=== PATIENT | male | born 1970 | race Caucasian/White ===

== ENCOUNTER 2023-09-22 08:38 | Emergency (ER) | payer SELFPAY ==
[2023-09-22 08:43] VITALS: BP 165/9
--- NOTE | 2023-09-22 09:14 | ED.GENMED ---
History of Present Illness
General
Chief Complaint: Dizziness
Source: patient
Exam Limitations: none
Time Seen by Provider: 09/22/23 09:12
Nursing documentation reviewed up to this point in time: agreed with
Travel History
Have you had any contact with someone who has COVID-19?: No
Do you have any symptoms of coronavirus? Fever > 100 degrees, chills, cough, shortness of breath, sore throat, loss of taste or smell, muscle aches, or headache?: No
History of Present Illness
History of Present Illness:
53-year-old male with history of COPD, HTN, right facial reconstruction surgery 08/14/23 presents stating he's been 'dizzy' since yesterday. 5 p.m playing with his dogs in yard, bent over to pik up a stick and felt suddenly off balance and dizzy for
about a minute. [place] well again and hit golf balls, went for walk, and about two hours later he became dizzy again, couldn't walk straight, vomited once and has felt dizzy since. It is room spinning and worse with any movement and is associated with
nausea, especially moving his head back and forth. No recent illness. Denies fever. Denies CP, SOB, abdominal pain. Denies weakness, numbness.
Past History
Past History
ED Past Medical History: Hypercholesterolemia
ED Past Surgical History: Orthopedic (right shoulder) and Other (R facial reconstructive surgery 08/14/23)
Social History
Tobacco: Non-smoker
Alcohol: Occasional
Drug: None
Personal:
Living: with family
Review of Systems
Review of Systems
Allergies reviewed?: Yes
All Other Systems: ROS reviewed and negative except as documented in HPI and ROS
Constitutional: Denies fever, fatigue or chills
EENT: Reports other (denies ear pain); Denies sore throat
Respiratory: Denies trouble breathing
Cardiac: Denies chest pain
ABD/GI: Reports nausea and vomiting (vomited once yesterday); Denies abdominal pain or diarrhea
: Denies dysuria or difficulty voiding
Musculoskeletal: Reports no symptoms
Skin: Reports other (Scars right face from recent surgery.)
Neurological: Reports dizzy; Denies headache, weakness or numbness
Phy Exam
Physical Exam
Physical Exam:
GENERAL: No acute distress. A&Ox3.
CONSTITUTIONAL: Afebrile.
EYES: PERRL, conjunctivae normal
Neck: Supple
ENMT: moist mucus membranes, Pharynx nl
RESPIRATORY: Regular respirations, nonlabored, lungs clear.
CARDIOVASCULAR: Regular rate and rhythm, no murmurs, no rubs.
GI: Soft, nontender, normal BS
MUSCULOSKELETAL: Moves with ease. Well perfused.
SKIN: Warm, dry, pink
PSYCH: Normal mood and affect. Well kept, interactive and appropriate
NEUROLOGIC: Awake, alert and oriented. Speech clear. CN 2-12 intact. Strength equal throughout. Finger to nose intact. No focal neurological deficits
Course
Orders/Labs/Results
Orders:
Orders
09/22/23 09:31
Physical Therapy Consult [Pt Eval And Treat] Urgent
Activity Level: As Tolerated
09/22/23 11:59
Dexamethasone [Decadron] 10 mg PO NOW STA
Vital Signs
Initial and Last Documented VS:
Initial Vital Signs
Temp Pulse Resp BP Pulse Ox
98.1 F 72 20 165/9 100
09/22/23 08:43 09/22/23 08:43 09/22/23 08:43 09/22/23 08:43 09/22/23 08:43
Last Documented Vital Signs
Temp Pulse Resp BP Pulse Ox
97.1 F 60 16 121/81 98
09/22/23 12:17 09/22/23 12:17 09/22/23 12:17 09/22/23 12:17 09/22/23 12:17
Log Chipper Operator consulted with Physician
Log Chipper Operator consulted with physician?: Yes
Name of Physician Consulted: Rea
MDM/Problems Addressed
Differential Diagnosis Includes:
BPPV, Labyrinthitis, vestibular neuritis, CVA
MDM/Problems Addressed:
53-year-old male with history of COPD, HTN, right facial reconstruction surgery 08/14/23 presents stating he's been 'dizzy' since yesterday. 5 p.m playing with his dogs in yard, bent over to pik up a stick and felt suddenly off balance and dizzy for
about a minute. [place] well again and hit golf balls, went for walk, and about two hours later he became dizzy again, couldn't walk straight, vomited once and has felt dizzy since. It is room spinning and worse with any movement and is associated with
nausea, especially moving his head back and forth. No recent illness. Denies fever. Denies CP, SOB, abdominal pain. Denies weakness, numbness.
Afebrile, NAD
11:10 AM
Patient is awaiting physical therapy. I just called up there and she will be down shortly, patient and updated
Case discussed with Dr. Lucia who agrees no indication for laboratory work, he and his both state he had laboratory work prior to his surgery and nothing was abnormal.
Cerebellar exam is normal Not consistent with posterior circulation stroke as symptoms come and go they are not persistent, no focal neurological deficits, no ataxia, no n/v,do not suspect CVA
11:59 AM
Physical therapist in: States negative BPPV, exam is consistent with neuritis as he has significant nystagmus at rest and with deviation to the right gaze only as well as a positive head impulse test.
Will treat with steroids, f/u with ENT as needed
Return here if worse
Pt and comfortable with this plan
Pt has appointment at [place] in 4 days and will discuss symptoms then to discern if symptoms related to recent facial surgery
Upon discharge, patient ambulated out with normal gait.
Chronic conditions affecting care: HTN
*Critical Care Note
Total Time (30-74mins, 75-104mins- exclusive of procedures): Not Applicable
ED Attending Note
-
Portions of this chart may have been created with voice recognition software.� Occasional wrong word or��sound alike� substitutions may have occurred due to the inherent limitations of voice recognition software.
Discharge Plan
Departure
Patient Disposition: Home (Routine Discharge)
Date of Disposition: 09/22/23
Time of Disposition: 12:06
Patient with high blood pressure during this ER visit?: No
Condition: Good
Discharge Problem:
Acute vestibular neuritis
Instructions: Labyrinthitis, Vertigo (a Type of Dizziness) (DC), Prednisone
Prescriptions:
New
prednisone 10 mg Tablet
See Rx Instructions .ROUTE .COMPLEX Qty: 45 0RF
Rx Instructions:
Take By Mouth:
50 mg daily x3 days, 40 mg daily x3 days,
30 mg daily x3 days, 20 mg daily x3 days,
10 mg daily x3 days
No Action
multivitamin [Multi-Day] 1 EACH tablet
1 tab PO DAILY
losartan 25 MG tablet
1 tab PO DAILY
loratadine 10 MG tablet
1 tab PO DAILY
albuterol sulfate 2.5 MG/3 ML solution for nebulization
2.5 mg inhalation R QID Qty: 30 0RF
prednisone 20 MG tablet
40 mg PO DAILY Qty: 8 0RF
Rx Instructions:
40 mg a day for 4 days
Referrals:
Tony Mina MD [Family Provider] -
Macrina Warren MD [Active] - As needed
Activity Restrictions/Additional Instructions:
As we discussed, I am going to treat you for 'vestibular neuritis.' It is similar to labyrinthitis so I provided you with information on that FYI.
You were given Decadron 10 mg (a steroid) here today
I sent a prescription for prednisone to your pharmacy, start it tomorrow as you were given a dose here today.
See the ENT doctor if you are not much improved within the next 3-5 days.
Return here immediately for worsening dizziness, balance problems or feeling worse in any way.
Interventions
Interventions:
*Risk Screen - Suicide Last Done: 09/22/23 09:15
*General Assessment Last Done: 09/22/23 09:15
*Neglect/Abuse Screening Last Done: 09/22/23 09:15
ED- Fall Risk Assessment Last Done: 09/22/23 09:15
*ED COVID-19 Vaccine History Last Done: 09/22/23 09:15
*Nursing Disposition Last Done: 09/22/23 12:31
ED- Neurological Assessment Last Done: 09/22/23 09:15
ED- Cardiac Assessment Last Done: 09/22/23 09:15
Discharge Date and Time
Discharge Date/Time: 09/22/23 12:32
Print Language: [place]
[2023-09-22 12:17] VITALS: BP 121/81
[2023-09-22] MEDS: DECADRON 10 MG PO (12:21)
[2023-09-22 12:42] VITALS: BP 150/91; PULSE 67; O2SAT 99
== END 2023-09-22 12:32 | disposition home or self-care (01) ==
LOC: EMR 08:38
PROVIDERS: EMERGENCY PHYSICIAN Emergency Medicine; FAMILY PHYSICIAN Family Medicine
DX: H81.20 Vestibular neuronitis, unspecified ear (principal); I10 Essential (primary) hypertension; J44.9 Chronic obstructive pulmonary disease, unspecified
CPT/HCPCS: 99283

== ENCOUNTER 2024-08-21 06:20 | Day surgery (SDC) | payer OTHER, SELFPAY | END 2024-08-21 14:55 | disposition home or self-care (01) | LOC: GI 06:20 | PROVIDERS: ATTENDING PHYSICIAN Internal Medicine Gastroenterology | DX: Z12.11 Encounter for screening for malignant neoplasm of colon (principal); R19.5 Other fecal abnormalities; K64.8 Other hemorrhoids; K57.30 Diverticulosis of large intestine without perforation or abscess without bleeding; D12.2 Benign neoplasm of ascending colon; D12.5 Benign neoplasm of sigmoid colon; K63.5 Polyp of colon | CPT/HCPCS: 45385; 45380; 88305 ==